=== PATIENT | female | born 1985 | race Two or more races ===

== ENCOUNTER 2021-08-29 08:57 | Emergency (ER) | payer MEDICAID ==
[~2021-08-29] VITALS: Ht 165.1 cm; Wt 86.2 kg
[2021-08-29] MEDS ORDERED: FLUORESCEIN SODIUM 1 MG STRIP OP ONE (09:15)
[2021-08-29] MEDS ORDERED: TETRACAINE HCL 0.5% OPHT DROP 2 ML BOTTLE OP ONE (09:15)
[2021-08-29] MEDS ORDERED: PRED50TA PO (09:33)
[2021-08-29] MEDS ORDERED: FAMO40TA71 PO (09:33)
[2021-08-29] MEDS ORDERED: DIPH25CA83 PO (09:33)
--- NOTE | 2021-08-29 09:40 | NUR ---
PATIENT WAS SEEN BY MD. DENIES SOB, NO SWELLING NOTED ON FACE, LIPS OR EYES. HAS "SPOTS" ON CHEST AND STATES THEY ITCH. DC, RX AND FOLLOW UP INSTRUCTIONS GIVEN AND EXPLAINED TO PATIENT WHO STATES SHE UNDERSTANDS ALL INSTRUCTIONS
== END 2021-08-29 09:43 | disposition home or self-care (01) ==
LOC: ER 08:57
DX: L25.9 Unspecified contact dermatitis, unspecified cause (principal)
CPT/HCPCS: A4663

== ENCOUNTER 2021-09-05 22:27 | Emergency (ER) | payer MEDICAID ==
[~2021-09-05] VITALS: Ht 165.1 cm; Wt 88.5 kg
[~2021-09-05 22:27] MED LIST: DIPH25CA83 PO; FAMO40TA71 PO; PRED50TA PO
--- NOTE | 2021-09-05 22:35 | NUR ---
Pt placed in room ED2A by powderer rakesh ARTHUR. Pt on gurney in pos of comfort. VSS. PE WNL, pt otherwise healthy healthy with no major med issues.
--- NOTE | 2021-09-05 22:40 | NUR ---
EDMD at bedside to assess pt. EDMD spent considerable amt of time at bedside explaining nature of food allergies to pt. Pt states that it is very mild, only minor itching, denies any sob or distress.
[2021-09-05] MEDS ORDERED: diphenhydrAMINE 50 MG/1 ML VIAL IM ONE (22:45)
[2021-09-05] MEDS ORDERED: FAMOTIDINE 20 MG TABLET PO ONE (22:45)
[2021-09-05] MEDS ORDERED: predniSONE 20 MG TABLET PO ONE (22:45)
[2021-09-05] MEDS ORDERED: PRED20TA PO (22:50)
[2021-09-05] MEDS ORDERED: DIPH25CA83 PO (22:50)
[2021-09-05] MEDS ORDERED: FAMO20TA8 PO (22:50)
[2021-09-05] MEDS ORDERED: diphenhydrAMINE 50 MG/1 ML VIAL ONE (22:54)
--- NOTE | 2021-09-05 22:54 | NUR ---
EDMD at bedside to explain dispo to pt and answer any questions. DC paperwork printed and pt ready to be DCed home. observing for reaction to any of the admin meds before dcing pt .
[2021-09-05] MEDS ORDERED: predniSONE 20 MG TABLET ONE (22:55)
[2021-09-05] MEDS ORDERED: FAMOTIDINE 20 MG TABLET ONE (22:55)
--- NOTE | 2021-09-05 22:59 | NUR ---
Pt given Dc instructions and pt confirmed understanding of aftercare and med info. Pt told that if she has any questios regarding the prescription, the pharmacist ought to be able to answer any questions she might have. Pt has great color and appearance, VSS, PE wnl, otherwise completely medically healthy individual besides some psych issues. No s/sx of distress present.
[2021-09-05 23:11] VITALS: BP 125/82
== END 2021-09-05 23:00 | disposition home or self-care (01) ==
LOC: ER 22:32
DX: L50.9 Urticaria, unspecified (principal); Z79.899 Other long term (current) drug therapy
CPT/HCPCS: 96372; 99283; J1200; J7512; A4663